=== PATIENT | female | born 2000 ===

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

== ENCOUNTER 2018-12-19 21:23 | Emergency (ER) | payer SELFPAY ==
[2018-12-19 21:24] VITALS: BMI 43.1
[2018-12-19 21:32] VITALS: RESP 16
[2018-12-19 22:44] LABS: SQUAMOUS EPITHIAL 18 /hpf (0-5); URINE BACTERIA RARE (<OCC); URINE BILIRUBIN NEGATIVE (NEGATIVE); URINE BLOOD NEGATIVE (NEGATIVE); URINE CLARITY CLOUDY (Clear); URINE COLOR YELLOW (YELLOW); URINE GLUCOSE (UA) NEG (NEGATIVE); URINE LEUKOCYTE ESTERASE MOD Leu/uL (Negative); URINE PROTEIN NEGATIVE (NEGATIVE); URINE UROBILINOGEN 0.2-1.0 mg/dL (0.2-1.0)
--- NOTE | 2018-12-19 23:38 | ED PDOC ---
History of Present Illness History of Present Illness: 18 y/o female with no significant PMHx presents to the ED for evaluation of a subjective fever, onset three days ago. Patient reports fever is associated with chills, a dry cough, sore throat and ear pain (R > L) for the past three days. Patient notes of taking Dayquil with no relief of symptoms. Patient denies sick contacts and recent travel. PMD: no provider HPI: Influenza Time Seen by Provider: 12/19/18 21:40 Chief Complaint: Chest Pain Chief Complaint (Provider): Flu-like symptoms History Per: Patient Exam Limitations: no limitations Have you had recent travel within the past 21 days to any of: No Onset/Duration Of Symptoms: Days (x3) Symptoms include: fever, sore throat, cough Sick Contacts (Context): None Past Medical History Reviewed: Historical Data, Nursing Documentation, Vital Signs Vital Signs: Last Vital Signs Temp 98.4 F 12/19/18 21:30 Pulse 98 H 12/19/18 21:30 Resp 16 12/19/18 21:30 BP 156/91 H 12/19/18 21:30 Pulse Ox 100 12/19/18 21:30 - Medical History PMH: No Chronic Diseases Denies: HIV, Chronic Kidney Disease - Surgical History Surgical History: No Surg Hx - Family History Family History: States: Unknown Family Hx - Social History Current smoker - smoking cessation education provided: No - Home Medications Home Medications: Ambulatory Orders Medication Instructions Recorded Docusate [Colace] 100 mg PO BID #14 cap 12/07/17 Ferrous Sulfate [Feosol] 325 mg PO BID #60 tab 12/07/17 Ibuprofen [Motrin Tab] 800 mg PO Q6 #30 tab 12/07/17 oxyCODONE/Acetaminophen [Percocet 1 ea PO Q6 PRN #12 tab 12/07/17 5/325 mg Tab] Ibuprofen [Motrin Tab] 600 mg PO Q6 #30 tab 12/19/18 Prednisone [Deltasone] 40 mg PO DAILY 3 Days #6 tablet 12/19/18 - Allergies Allergies/Adverse Reactions: Allergies Allergy/AdvReac Type Severity Reaction Status Date / Time No Known Allergies Allergy Verified 12/19/18 21:30 Review of Systems ROS Statement: Except As Marked, All Systems Reviewed And Found Negative Constitutional: Positive for: Fever, Chills ENT: Positive for: Ear Pain, Throat Pain Respiratory: Positive for: Cough Physical Exam - Reviewed Nursing Documentation Reviewed: Yes Vital Signs Reviewed: Yes - Physical Exam Appears: Positive for: Well Head Exam: Positive for: ATRAUMATIC Skin: Positive for: Normal Color, Warm, Dry Eye Exam: Positive for: Normal appearance, EOMI, PERRL ENT: Positive for: TM Is/Are (Right TM: Erythema of the right TM with no pus. Left TM: Normal) Neck: Positive for: Normal, Painless ROM, Supple Cardiovascular/Chest: Positive for: Regular Rate, Rhythm. Negative for: Murmur Respiratory: Positive for: Normal Breath Sounds. Negative for: Respiratory Distress Gastrointestinal/Abdominal: Positive for: Normal Exam, Soft. Negative for: Tenderness Back: Positive for: Normal Inspection. Negative for: L CVA Tenderness, R CVA Tenderness Extremity: Positive for: Normal ROM. Negative for: Deformity Neurological/Psych: Positive for: Awake, Alert, Oriented. Negative for: Motor/Sensory Deficits Medical Decision Making Medical Decision Making: Time: 2200 A/P: 18 y/o well appearing female with Upper Respiratory symptoms. 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 Patient reports an improvement of symptoms. CXR demonstrates no acute findings. On exam, abdomen is soft, non-tender. Scribe Attestation: Documented by Margo Ruiz, acting as a scribe for Ross Cooper MD. Provider Scribe Attestation: All medical record entries made by the Scribe were at my direction and personally dictated by me. I have reviewed the chart and agree that the record accurately reflects my personal performance of the history, physical exam, medical decision making, and the department course for this patient. I have also personally directed, reviewed, and agree with the discharge instructions and disposition. - Laboratory Results Lab Results: Urine Color Yellow (YELLOW) 12/19/18 22:25 Urine Clarity Cloudy (Clear) 12/19/18 22:25 Urine pH 7.0 (5.0-8.0) 12/19/18 22:25 Ur Specific [place] 1.023 (1.003-1.030) 12/19/18 22:25 Urine Protein Negative mg/dL (NEGATIVE) 12/19/18 22:25 Urine Glucose (UA) Neg mg/dL (NEGATIVE) 12/19/18 22:25 Urine Ketones Negative mg/dL (NEGATIVE) 12/19/18 22:25 Urine Blood Negative (NEGATIVE) 12/19/18 22:25 Urine Nitrate Negative (NEGATIVE) 12/19/18 22:25 Urine Bilirubin Negative (NEGATIVE) 12/19/18 22:25 Urine Urobilinogen 0.2-1.0 mg/dL (0.2-1.0) 12/19/18 22:25 Ur Leukocyte Esterase Mod Micah/uL (Negative) 12/19/18 22:25 Urine RBC (Auto) 1 /hpf (0-3) 12/19/18 22:25 Urine Microscopic WBC 9 /hpf (0-5) H 12/19/18 22:25 Ur Squamous Epith Cells 18 /hpf (0-5) H 12/19/18 22:25 Urine Bacteria Rare (<OCC) 12/19/18 22:25 - ECG O2 Sat by Pulse Oximetry: 100 (RA) Pulse Ox Interpretation: Normal Disposition - Clinical Impression Clinical Impression: Upper respiratory infection - Disposition Referrals: [facility] [Outside] Disposition: Routine/Home Disposition Time: 23:40 Condition: IMPROVED Prescriptions: Ibuprofen [Motrin Tab] 600 mg PO Q6 #30 tab Prednisone [Deltasone] 40 mg PO DAILY 3 Days #6 tablet Instructions: Viral Upper Respiratory Infection, Adult (DC) Forms: [employer] (Kiswahili)
[2018-12-19 23:58] VITALS: BP 130/82; PULSE 79; TEMP 98.3
[2018-12-20 04:02] VITALS: O2SAT 100
--- NOTE | 2018-12-20 08:59 | CARD ---
APPROVED REPORT Date of service: 12/19/2018 EKG Measurement Heart [id number] <Conclusion> Normal sinus rhythm Normal ECG
--- NOTE | 2018-12-20 10:09 | RAD ---
Date of service: 12/19/2018 HISTORY: cough, fever COMPARISON: Comparison chest 12/02/17 TECHNIQUE: Chest PA and lateral FINDINGS: LUNGS: No active pulmonary disease. PLEURA: No significant pleural effusion identified. No pneumothorax apparent. CARDIOVASCULAR: No aortic atherosclerotic calcification present. Normal cardiac size. No pulmonary vascular congestion. OSSEOUS STRUCTURES: No significant abnormalities. VISUALIZED UPPER ABDOMEN: Normal. OTHER FINDINGS: None. IMPRESSION: No active disease.
== END 2018-12-19 23:58 | disposition home or self-care (01) ==
LOC: H.ER 21:23
DX: J06.9 Acute upper respiratory infection, unspecified (principal)